=== PATIENT | female | born 1995 | race Two or more races ===

== ENCOUNTER 2023-03-13 12:10 | Day surgery (SDC) | payer OTHER ==
[2023-03-10 12:38] LABS: HEMATOCRIT 38.2 % (36.0-45.00); HEMOGLOBIN 13.1 g/dL (12.0-15.00); MEAN CORPUSCULAR HEMOGLOBIN 29.1 pg (27.00-32.0); MEAN CORPUSCULAR HGB CONC 34.2 g/dl (32.0-36.0); PLATELET COUNT 212 K/uL (150-450); RED BLOOD COUNT 4.49 M/uL (4.00-6.00); RED CELL DISTRIBUTION WIDTH 14.1 % (11.5-14.5)
[2023-03-10 12:39] LABS: URINE APPEARANCE Clear; URINE BILIRRUBIN Negative (NEGATIVE); URINE BLOOD Negative; URINE COLOR Yellow; URINE GLUCOSE Negative (NEGATIVE); URINE LEUKOCYTE Negative; URINE NITRATE Negative; URINE PROTEIN Negative (NEGATIVE); URINE UROBILINOGEN 0.2 E.U./dl
[2023-03-10 12:42] LABS: URINE EPITHELIAL CELLS 14.5 uL (0.0-38.8); URINE RBC 2.5 uL (0.0-20.8); URINE WBC 4.3 uL (0.0-23.2)
[2023-03-10 13:11] LABS: INR 1.06; PARTIAL THROMBOPLASTIN TIME 27.6 SECONDS (22.0-34.0); PROTHROMBIN TIME 11.1 SECONDS (9.0-11.5)
[2023-03-10 13:15] LABS: BILIRUBIN TOTAL 0.38 mg/dL (0.3-1.2); CALCIUM 9.7 mg/dL (8.5-10.1); CREATININE SERUM 0.56 mg/dL (0.55-1.02); GFR 128.9; GLOBULINA 3.5 G/DL (2.4-3.5); POTASSIUM 4.69 mEq/L (3.5-5.1); TOTAL PROTEIN 7.5 gm/dL (6.4-8.2)
== END 2023-03-13 21:30 | disposition home or self-care (01) ==
LOC: CIR.AMB 12:10
PROVIDERS: ATTEND Specialist
DX: O36.4XX0 Maternal care for intrauterine death, not applicable or unspecified (principal); O72.2 Delayed and secondary postpartum hemorrhage

== ENCOUNTER 2024-12-30 09:51 | Emergency (ER) | payer OTHER ==
[~2024-12-30] VITALS: Ht 154.9 cm; Wt 54.4 kg
[2024-12-30] MEDS ORDERED: KETOROLAC TROMETHAMINE 60 MG VIAL IM ONE (10:30)
[2024-12-30] MEDS ORDERED: SUMATRIPTAN SUCCINATE 6 MG/0.5 ML VIAL SUBCUTANEO ONE (10:30)
[2024-12-30] MEDS ORDERED: DEXAMETHASONE SODIUM PHOSPHATE 4 MG/ML VIAL IM ONE (10:45)
[2024-12-30 11:33] LABS: BASO % 0.3 % (0.1-1.2); EOS # 0.03 (0.04-0.54); EOS % 0.4 % (0.7-7.0); LYMPH # 1.60 (1.18-3.74); LYMPH % 22.4 % (19.3-53.1); MEAN PLATELET VOLUME 11.40 fl (9.4-12.4); MONO # 0.32 (0.24-0.82); MONO % 4.5 % (4.7-12.5); NEUT # 5.16 (1.56-6.13); NEUT % 72.1 % (34.0-71.1); RED CELL DISTRIBUTION WIDTH 13.2 % (11.6-14.4)
[2024-12-30 11:57] LABS: ALT/SGPT 23.0 U/L (12-78); AST/SGOT 19.0 U/L (15-37); BILIRUBIN TOTAL 0.39 mg/dL (0.3-1.2); BUN CREA RATIO 21.0 (7.0-25.0); CREATININE SERUM 0.77 mg/dL (0.55-1.02); GFR 88.02; GLOBULINA 3.5 G/DL (2.4-3.5); GLUCOSE FASTING 122.0 mg/dL (65-100); OSMOLALITY SERUM 278.0 MOSM/KG (275-295)
[2024-12-30] MEDS ORDERED: BUTALBIT-ACETA1 EACH PO (13:29)
== END 2024-12-30 13:36 | disposition home or self-care (01) ==
LOC: ER 10:05
PROVIDERS: General Practice
DX: G43.909 Migraine, unspecified, not intractable, without status migrainosus (principal); H54.61 Unqualified visual loss, right eye, normal vision left eye